=== PATIENT | male | born 2000 | race Caucasian/White ===

== ENCOUNTER 2018-11-27 15:07 | Emergency (ER) | payer OTHER ==
[~2018-11-27] VITALS: Ht 162.6 cm; Wt 69.8 kg
[2018-11-27 15:10] VITALS: Ht 162.6 cm; Wt 69.8 kg
[2018-11-27] MEDS ORDERED: LIDOCAINE 1% (MDV) 20 ML INJ SC ONE (16:00)
[2018-11-27] MEDS ORDERED: TRAM50TA2 PO (17:41)
[2018-11-27] MEDS ORDERED: IBUP-1545 PO (17:41)
[2018-11-27] MEDS ORDERED: AMOX1TAB9 PO (17:41)
[2018-11-27] MEDS ORDERED: ACETAMINOPHEN 500 MG TAB PO STA (17:43)
[2018-11-27] MEDS ORDERED: traMADol 50 MG TAB PO ONE (18:00)
[2018-11-27] MEDS ORDERED: BACITRACIN 0.9 GM OINT TOP ONE (18:00)
[2018-11-27 18:05] VITALS: BP 128/71; PULSE 78; RESP 16
--- NOTE | 2018-11-27 18:58 | ERD ---
ER Documentation Chief Complaint Chief Complaint pt bib self with c/o left great ingrown toenail HPI History of Present Illness: 18-year-old male with no past medical history coming in today with complaints of left great toe pain. Patient believes he has a ingrown toenail. Patient reports is been much present for 1 month pain is been progressive for particularly while wearing shoes. Patient reports yellow purulent drainage from left great toe. Patient also says that his right toe is also affected as well. At home pharmacological/nonpharmacological treatment for symptoms: Denies Denies social concerns; Denies recent foreign travel ROS All systems reviewed and are negative except as per history of present illness. Medications Home Meds Active Scripts Tramadol HCl (Tramadol HCl) 50 Mg Tablet, 50 MG PO Q8 for PAIN LEVEL (6-10), #3 TAB Prov:JUNE HENDRICKSON NP 11/27/18 Ibuprofen* (Ibuprofen*) 800 Mg Tab, 800 MG PO Q6H PRN for PAIN, #30 TAB Prov:JUNE HENDRICKSON NP 11/27/18 Amoxicillin/Potassium Clav (Amox-Clav 500-125 mg Tablet) 500-125 mg Tab, 1 TAB PO BID for TOE INFECTION PREVENTION for 5 Days, TAB Prov:JUNE HENDRICKSON NP 11/27/18 Allergies Allergies: Coded Allergies: No Known Allergy (Unverified , 11/27/18) PMhx/Soc Medical and Surgical Hx: pt denies Medical Hx, pt denies Surgical Hx Hx Alcohol Use: No Hx Substance Use: No Hx Tobacco Use: No Smoking Status: Never smoker FmHx Family History: No diabetes, No coronary disease Physical Exam Vitals Vital Signs Date Temp Pulse Resp B/P (MAP) Pulse Ox O2 O2 Flow FiO2 Time Delivery Rate 11/27/18 98.1 78 16 128/71 97 Room Air 18:05 (90) 11/27/18 98.3 74 16 138/75 97 15:10 (96) Physical Exam Const: No acute distress Head: Atraumatic Eyes: Normal Conjunctiva ENT: Normal External Ears, Nose and Mouth. Neck: Full range of motion. No meningismus. Resp: Clear to auscultation bilaterally Cardio: Regular rate and rhythm, no murmurs Abd: Soft, non tender, non distended. Normal bowel sounds Skin: No petechiae or rashes Back: No midline or flank tenderness Ext: No cyanosis, or edema. Paronychia with purulent drainage noted to left great toe, medially and laterally. Paronychia with purulent drainage noted to right great toe, medially. Cap refill normal bilaterally. Neur: Awake and alert Psych: Normal Mood and Affect Results 24 hrs Current Medications Medications Dose Sig/Eusebio Start Time Status Last (Trade) Ordered Route PRN Stop Time Admin Dose Reason Admin Lidocaine 20 ml ONCE ONCE 11/27/18 DC (Xylocaine SC 16:00 1% (Mdv) 20 11/27/18 16:01 ml) Tramadol 50 mg ONCE ONCE 11/27/18 DC 11/27/18 HCl PO 18:00 17:59 (Ultram) 11/27/18 18:01 1,000 mg ONCE STAT 11/27/18 DC 11/27/18 Acetaminophen PO 17:43 17:59 (Tylenol 11/27/18 17:45 Tab) Bacitracin 2 applic ONCE ONCE 11/27/18 DC 11/27/18 (Bacitracin TOP 18:00 17:59 Oint (Ud)) 11/27/18 18:01 Procedures/MDM ED course includes a thorough examination and history. Medications: Lidocaine Imaging: -- Labs: -- Low suspicion for life-threatening medical emergency. Low suspicion for infectious emergency requires hospitalization or immediate surgical intervention. Otherwise healthy patient presenting with constellation of symptoms likely representing paronychia as characterized by history, physical exam findings. Toenail Removal by me: Anesthesia: 1% lidocaine Digital Block Location: Left great toe, medially laterally and right great toe, ideally Technique: from nail bed, vertical split, twisting towards remaining nail. Packing: Non-adherent dressing applied Complications: None Recommend bid dressing changes and warm water soaks. No respiratory distress, otherwise relatively well appearing and nontoxic. Patient educated on diagnoses, prescriptions, follow-up care, return precautions. Strict return precautions given for worsening condition; questions answered discharge. Disposition for discharge with followup in 2 days with PCP/clinic. Departure Diagnosis: Primary Impression: Paronychia Condition: Stable Patient Instructions: Paronychia Referrals: COMMUNITY CLINICS YOU HAVE RECEIVED A MEDICAL SCREENING EXAM AND THE RESULTS INDICATE THAT YOU DO NOT HAVE A CONDITION THAT REQUIRES URGENT TREATMENT IN THE EMERGENCY DEPARTMENT. FURTHER EVALUATION AND TREATMENT OF YOUR CONDITION CAN WAIT UNTIL YOU ARE SEEN IN YOUR DOCTORS OFFICE WITHIN THE NEXT 1-2 DAYS. IT IS YOUR RESPONSIBILITY TO MAKE AN APPOINTMENT FOR FOLOW-UP CARE. IF YOU HAVE A PRIMARY DOCTOR --you should call your primary doctor and schedule an appointment IF YOU DO NOT HAVE A PRIMARY DOCTOR YOU CAN CALL OUR PHYSICIAN REFERRAL HOTLINE AT IF YOU CAN NOT AFFORD TO SEE A PHYSICIAN YOU CAN CHOSE FROM THE FOLLOWING [facility] [address] [facility] [address] [facility] [address] [facility] [address] [facility]. [facility] [address] [facility]. [facility] [address] [facility]. [facility] YOU HAVE RECEIVED A MEDICAL SCREENING EXAM AND THE RESULTS INDICATE THAT YOU DO NOT HAVE A CONDITION THAT REQUIRES URGENT TREATMENT IN THE EMERGENCY DEPARTMENT. FURTHER EVALUATION AND TREATMENT OF YOUR CONDITION CAN WAIT UNTIL YOU ARE SEEN IN YOUR DOCTORS OFFICE WITHIN THE NEXT 1-2 DAYS. IT IS YOUR RESPONSIBILITY TO MAKE AN APPOINTMENT FOR FOLOW-UP CARE. IF YOU HAVE A PRIMARY DOCTOR --you should call your primary doctor and schedule and appointment IF YOU DO NOT HAVE A PRIMARY DOCTOR YOU CAN CALL OUR PHYSICIAN REFERRAL HOTLINE AT . IF YOU CAN NOT AFFORD TO SEE A PHYSICIAN YOU CAN CHOSE FROM THE FOLLOWING [facility]: [facility] [address] [place] [address] [facility] [address] [place] [address] [facility] + [facility] [address] [place] [address] Additional Instructions: Thank you very much for allowing us to participate in your care. Your health and safety is our top priority at [facility]. It is important to read all discharge instructions and education provided in your discharge packet. *Warm water foot soaks for the next 2 to 3 days. Keep wound clean and dry. Use sterile dressings to change twice a day. Call your primary care doctor TOMORROW for an appointment during the next 2-4 days and bring all the information and medications prescribed. Have prescriptions filled and follow precisely the directions on the label. -Augmentin as an antibiotic; take this medication every day every 12 hours as listed on your prescription. You must complete the entire course of treatment that is listed on your prescription this is very important because it takes a certain number of days to kill the bacteria that can cause the infection. -Ibuprofen 800 mg is a anti-inflammatory/pain medication; take this medication daily as prescribed for the next week to help with swelling/inflammation/pain. -Tramadol is an opiate pain medication; take this medication as needed for moderate to severe pain. No operating of heavy machinery while taking this medication. It may cause drowsiness. If the symptoms get worse and your provider is unavailable, return to the Emergency Department immediately. JUNE HENDRICKSON NP Nov 27, 2018 18:58
== END 2018-11-27 18:05 | disposition home or self-care (01) ==
LOC: FTE 15:07
DX: L03.032 Cellulitis of left toe (principal); L03.031 Cellulitis of right toe
CPT/HCPCS: 11765; Z7502; Z7610